=== PATIENT | male | born 1990 | race Caucasian/White ===

== ENCOUNTER 2019-11-13 20:02 | Emergency (ER) | payer OTHER, SELFPAY ==
[2019-11-13 20:04] VITALS: BP 144/86; PULSE 96; RESP 15; TEMP 36.4; O2SAT 98; BMI 30.2
--- NOTE | 2019-11-13 20:11 | ED.VIS.GEN ---
History of Present Illness Chief Complaint: Lower Extremity Injury Informant: Patient Onset: Today Narrative: Inversion injury right ankle 5 PM at [email or web address]. Jumping off a rock climbing wall into foam pit, when he felt pain. Pain shoots up his leg to his buttocks. No back pain. No loss of bowel or bladder control. Aleve taken within the last hour. No history of gastric ulcers or kidney injury. Patient drove himself here. No past medical history. States has had nonsurgical fractures when he was younger. Prior similar symptoms: Yes Past Medical History - Allergies and Home Meds Allergies/Adverse Reactions: Allergies No Known Allergies Allergy (Verified 11/13/19 20:02) Primary Care Physician: Samy Nguyen MD [Primary Care Provider] - Past Medical History: None Smoking Status: Never smoker Review of Systems General: Denies: Chills, Fever, Sweats Eyes: Denies: Visual changes - bilaterally, Diplopia ENT: Denies: Rhinorrhea, Sore throat Cardiovascular: Denies: Chest pain, Palpitations Respiratory: Denies: Dyspnea, Cough, Dyspnea on exertion Gastrointestinal: Denies: Abdominal pain, Nausea, Vomiting, Diarrhea, Melena, Hematochezia Genitourinary: Denies: Dysuria, Hematuria, Frequency Musculoskeletal: Reports: Arthralgias. Denies: Back pain, Extremity Pain Skin: Denies: Rash, Wounds Neurological: Denies: Headache, Weakness, Numbness Physical Exam Vital Signs/Narrative: Vital Signs Temp Pulse Resp BP Pulse Ox 11/13/19 20:04 97.6 F L 96 15 144/86 H 98 Inital Vital Signs reviewed: Yes General: Well nourished, Well developed, No Acute Distress Head: Normocephalic, Atraumatic Eyes: Perrl, EOMI ENT: Moist mucous membranes, No rhinorrhea Neck: Supple, Nontender Cardiovascular: Regular rate, Regular rhythm, No murmurs Respiratory: No distress, CTA bilaterally, Chest nontender Abdomen: Soft, Nontender, Nondistended, Normal bowel sounds Back: Nontender, Normal Inspection, - - Straight leg test negative bilaterally. Extremities: Nontender, No edema, - - Right lower extremity: No tenderness of hip or knee. There is slight tenderness lateral malleolus with tenderness and swelling of the ATFL. No foot tenderness. Neurovascular intact distally. Skin intact. Skin: Normal color, No rash Neurological: Alert, Oriented x3, Cranial nerves II-XII grossly intact, Normal Strength, Normal Sensation Psychological: Normal affect, Normal Mood Diagnostic/Tx/Re-eval - Medical Decision Making Clinical Impression(s) from Imaging Studies Ankle X-Ray 11/13/19 20:24 IMPRESSION: Normal x-ray examination of the ankle. Electronically Signed: Sky North MD at 20:53 EST , Service support , 3 view x-ray of ankle reviewed by myself and read by radiologist with no acute fractures. Provide Aircast. Poor radicular symptoms likely from his injury, there is no deformities, no back pain. He states previously did not like opiates, discussed continuing his Aleve with 2 tabs [id number] every 12 hours. Rice therapy. He declined any crutches at this time. He will follow-up as an outpatient. All questions were answered. ED Disposition - Plan for ED Patient: Disposition: Home or Assisted Living Diagnosis: Right ankle sprain Instructions: Sprain, Ankle, with X-Ray Referrals: Samy Nguyen MD [Primary Care Provider] - 5-7 Days Additional Instructions: Right ankle x-ray: No fracture noted. Continue [id number] Aleve 2 tabs every 12 hours for pain control.
--- NOTE | 2019-11-13 20:24 | RAD_ITS ---
STUDY: X-RAY - RIGHT ANKLE REASON FOR EXAM: Male, 29 years old. PAIN TO LATERAL ANKLE RADIATING UP LEG S/P INJURY AT [employer] TECHNIQUE: 3 view(s) of the ankle. COMPARISON: None. FINDINGS: Normal visualized distal tibia and fibula. Normal medial and lateral malleoli. Normal tibiotalar articulation and ankle mortise. Normal visualized talus and calcaneus. The visualized subtalar, talonavicular, calcaneocuboid and tarsal articulations are normal. There is no demonstrated fracture. The soft tissue structures are unremarkable. RAD/Ankle min 3 Views IMPRESSION: Normal x-ray examination of the ankle. Electronically Signed: Sky North MD at 20:53 EST , Service support ,
== END 2019-11-13 21:26 | disposition home or self-care (01) ==
PROVIDERS: Emergency Provider Emergency Medicine; PCP Family Medicine
DX: S93.401A Sprain of unspecified ligament of right ankle, initial encounter (principal); X58.XXXA Exposure to other specified factors, initial encounter; Y93.44 Activity, trampolining; Y92.838 Other recreation area as the place of occurrence of the external cause
CPT/HCPCS: 73610; 99283

== ENCOUNTER → 2020-05-30 13:27 | Outpatient (CLI) | payer OTHER, SELFPAY ==
--- NOTE | 2020-05-30 13:30 | PET_ITS ---
EXAMINATION: FDG PET-CT INDICATIONS: A 29-year-old male with reported history of lymphoma presenting for initial staging examination. COMPARISON EXAMINATION: None available INDEX LESION SIZE LUGANO SCORE SUV INTERPRETATION Bilateral-anterior neck-supraclavicular regions 14.5 x 12.2-mm (largest) (frame 218) 5 4.8 (max) Fulfills quantitative criteria for viable neoplasm Mediastinal structures 17.3 x 24.4-mm (largest) (frame 190) 5 6.2 (max) Fulfills quantitative criteria for viable neoplasm Abdominal retroperitoneum 23.9 x 42.6-mm (largest) (frame 119) 5 7.2 (max) Fulfills quantitative criteria for viable neoplasm TECHNIQUE: Following the intravenous administration of 13.88 mCi of F-18 deoxyglucose via the left antecubital fossa, multiplanar image acquisitions of the neck, chest, abdomen and pelvis to level of mid thigh, obtained at one hour post radiopharmaceutical administration contemporaneously interpreted with the current CT of the neck, chest, abdomen and pelvis, to level of mid thigh, dated 05/30/2020 via coregistration reveals: BLOOD GLUCOSE LEVEL:?? 81 mg/dl?HEIGHT:?67 inches?WEIGHT: 180 lbs. FINDINGS: 1. Multifocal increased glucose metabolism is defined in the bilateral supraclavicular regions-anterior neck involving level IV. The calculated maximal standard uptake value is 4.8. The Lug[place] Deauville score is 5. The maximal axial diameter of the largest individual metabolic, morphologic abnormality on review of CT of the neck-chest dated 05/30/2020 is 14.5-mm (transverse) x 12.2-mm (AP). 2. Enhanced fluorine labeled glucose uptake is multifocally apparent in the pre-subcarinal anterior-posterior mediastinum corresponding to soft tissue nodularity on review of CT of the chest dated 05/30/2020. The calculated maximal standard uptake value is 6.2. The [place] Deauville is 5. The maximal axial diameter of the largest individual hypermetabolic soft tissue density on review of CT of the chest dated 05/30/2020 is 17.3-mm (transverse) x 24.4-mm (AP). 3. Multifocal increased FDG distribution is manifest in the left upper-lower abdominal retroperitoneum corresponding to soft tissue nodularity on review of CT of the abdomen and pelvis dated 05/30/2020. The calculated maximal standard uptake value is 7.2. The Lug[place] Deauville score is 5. The maximal axial diameter of the largest individual metabolic, morphologic abnormality on review of CT of the abdomen dated 05/30/2020 is 23.9-mm (transverse) x 42.6-mm (AP). 4. Normal physiologic distribution of the radiopharmaceutical is apparent in the hepatic (2.4) and splenic parenchyma, both renal units, bladder and visualized intestinal tract. The visualized portion of the cerebral cortex demonstrate symmetric and preserved glucose metabolism. Diffuse radiopharmaceutical concentration is noted in all four quadrants of the abdomen and pelvis. Pertinent CT findings are as follows: CHEST: Bilateral axillary soft tissue densities with fatty hilus are ametabolic. There are no parenchymal densities-nodules defined in the right and left hemithorax with discernible quantitatively significant increased FDG concentration. ABDOMEN AND PELVIS: Bilateral subcentimeter inguinal soft tissue demonstrates no evidence of facilitated FDG uptake. Calcified phlebolith formation is visualized in the bilateral lower hemipelvis. SKELETAL: Degenerative changes are noted in the cervical, thoracic and lumbar spine. PET/PET/CT Tumor Base -Thigh Init IMPRESSION: 1. ABNORMAL EXAMINATION INDICATIVE OF MALIGNANT VIABLE NEOPLASM. 2. Increased glucose concentration observed in the bilateral anterior neck-supraclavicular regions, mediastinal structures and abdominal retroperitoneum fulfill quantitative criteria for viable neoplasm. (Aleksandra et al, Journal of Clinical Oncology 32:3059, 2014). Electronic Signature uJdd Brantley D.O. Accurate Quantification of SUVs for this report are calculated using the exclusive [employer] Technology. Electronically Signed: Judd Brantley DO at 22:42 EDT Tel , Service support ,
== END ==
PROVIDERS: PCP Family Medicine; Referring Provider Internal Medicine Hematology & Oncology; Visit Provider Internal Medicine Hematology & Oncology
DX: C81.18 Nodular sclerosis Hodgkin lymphoma, lymph nodes of multiple sites (principal)
CPT/HCPCS: 78815; A9552

== ENCOUNTER 2020-06-01 13:19 | Day surgery (SDC) | payer OTHER, SELFPAY ==
--- NOTE | 2020-05-30 15:33 | PCM.HP.BLA ---
History and Physical Date of Admission: 06/01/20 Chief Complaint: need for IV access for chemotherapy for lymphoma History of Present Illness: 29 y/o WM with newly diagnosed lymphoma. Findings on CT scan of intrathoracic enlarged lymph nodes for which biopsy revealed Hodgkin's lymphoma He has been evaluated by the oncologist and recommendations for VAD placement. Patient has not had previous central line venous catheters. Denies clavicular or rib fractures in the past. Denies history of DVTs in past. Past Medical History: Hodgkin's lymphoma anemia Past Surgical History: appendectomy Medications: iron supplementation Allergies: Has no known drug allergies Social history: TOB use denies Review of Systems: CONSTITUTIONAL: ?No fevers, chills, nightsweats, unintended weight loss HEENT: ?Denies frequent or severe heaches, nasal congestion/sinus symptoms, problematic allergy problems. EYES: ?No diplopia or blurry vision. CARDIOVASCULAR: ?No chest pain, dyspnea, palpitations, orthopnea, PND, ankle edema. PULM: ?No dyspnea, unexplained cough. GI: ?No dysphagia/odynophagia, problematic reflux, constipation, diarrhea, changes in stool habits, hematochezia, melena. : ?No new urinary complaints, including dysuria, gross hematuria or pyuria. NEURO: ?No new balance problems, peripheral weakness/paresthesias or numbness of concern. MUSC-SKEL: ?No new joint pain, swelling, or erythema. PSY: ?No concerns regarding depression, anxiety or panic. INTEGUMENTARY: ?No new skin changes (rash, new or changing mole, new growth) Physical examination: Vital signs BP 123/72 Pulse 57 Temp (Src) 97.2 (Temporal) Wt 180 lb 8 oz (81.9kg) HEENT: Head is normocephalic, atraumatic. Sclerae white, conjunctivae pink. PEERL. EOMs are intact. Oropharynx is benign. LYMPHATICS: There is palpable adenopathy in the neck, supraclavicular region,??no axillary adenopathy or inguinal adenopathy LUNGS: Lungs are clear to percussion and auscultation. HEART: Heart is normal without murmurs, gallops, or rubs. ABDOMEN: Soft and nontender without hepatosplenomegaly. No masses can be palpated. EXTREMITIES: Are without edema. NEUROLOGIC: Exam is physiologic PSYCH: appropriate and calm Impression: lymphoma Discussion/Plan: I have discussed the above with the patient. I have offered the patient the procedure of placement of portacath. I have explained the procedure to the patient. I have counseled the patient as to the risks of the procedure, including but not limited to: infection, bleeding, injury to any blood vessels/nerves, scar tissue, injury to the lungs such as hemothorax and/or pneumothorax, thrombosis of blood vessel, non functioning of port, line infection/sepsis, inability to place catheter, wound infections, etc. the patient understands. The patient was offered a surgery/procedure. The provider and patient have discussed in detail the risk of exposure to and/or potential harm posed by the COVID-19 virus with having a surgery/procedure at this time versus the risk of delaying the surgery/procedure. It is not possible to know either the risk of delaying the surgery or procedure or chance of getting an infection with perfect accuracy, but a joint decision was made between the patient and the provider to proceed at this time with the scheduled surgery/procedure. He wishes to proceed. I have answered all questions to the patient?s satisfaction and the patient has no further questions.
[2020-06-01 13:38] VITALS: BP 125/78; PULSE 73; RESP 16; TEMP 36.8; O2SAT 98; BMI 26.9
[2020-06-01] MEDS: Lactated Ringers 1,000 ML 75 ML IV (13:38)
[2020-06-01] MEDS: Cefazolin 2 GM in 0.9% Normal Saline 100 ML IV (15:09)
--- NOTE | 2020-06-01 15:59 | PCM.OPRPT ---
Report of Operation Date of Procedure: 06/01/20 Pre-Operative Diagnosis: Hodgkin's lymphoma, need for IV access for chemotherapy Post-Operative Diagnosis: same as above Surgery/Procedure Performed:: placement of permanent indwelling tunneled catheter in right subclavian vein with subcutaneous port Description of Surgical Findings:: normal right subclavian anatomy to SVC Type of Anesthesia:: Local MAC Anesthesiologist: Luis Carlos Garcia Specimen's removed: none Estimated Blood Loss (mL): < 5 ml Fluids Replaced: 800 ml RL Description of Procedure: After informed consent was given, the patient was brought to the Operating Room. Appropriate time out protocol was followed. The patient was then placed in the supine position. The patient was then given IV conscious sedation for anesthesia. The patient?s upper chest and neck were then prepped with a surgical skin preparation and sterile surgical drapes were placed. After proper landmarks were ascertained, the skin at the upper right chest area was then infiltrated with 1% xylocaine with epinephrine. A needle trocar was then inserted into the right subclavian vein and there was good aspiration of venous blood. A wire was then threaded into the needle trocar and this was visualized under fluoroscopy to ensure that the wire was in the right subclavian vein. Once this was done, then the needle trocar was removed. A small skin naveen was made with an 11 blade knife at the wire entrance site. The dilator with the introducer sheath attached was then placed over the wire into the right subclavian vein via the Seldinger technique and this was visualized under fluoroscopy. The dilator and sheath were in proper position as visualized by fluoroscopy in real time. The wire and dilator were then removed. The catheter was then threaded into the introducer sheath and was positioned with its tip at the junction of the superior vena cava and the right atrium as visualized under fluoroscopy in real time. I personally reviewed all of the above fluoroscopic images and noted that the positions of the wire and catheter were correct so that the next step could be conducted. The catheter was flushed with a heparin saline mixture prior to placement. A subcutaneous pocket was then created caudad to the catheter insertion site. A transverse skin incision was made after the skin and subcutaneous tissues were infiltrated with local anesthetic. Blunt dissection was then used to create a space large enough for placement of the subcutaneous port. Hemostasis was carefully controlled with electrocautery. The port was sutured to the subcutaneous fascia using vicryl suture at three sites. The catheter was then tunneled into the subcutaneous pocket. The excess catheter was transected. The catheter was then attached to the subcutaneous port using pelletizer tender?s guidelines. The port was then placed in the subcutaneous pocket and the sutures were ligated. The subdermal incisional sites were reapproximated with interrupted vicryl suture. The skin was reapproximated with monocryl suture in a subcuticular fashion. Cavilon and steristrips were used for reinforcement of the skin closure and a sterile opsite dressing was applied. Sponge, needle, and instrument count were verified and correct at the time of skin closure. The patient was brought to the Recovery Room in stable condition [id number] 2021-07-08 - Complications none noted - Admit VTE Documentation VTE Present on Admission: Yes VTE Mechan Device Prophylaxis: SCD's
[2020-06-01 16:10] VITALS: BP 118/62; BP 125/78; PULSE 93; RESP 16; TEMP 36.3; O2SAT 99
[2020-06-01 16:15] VITALS: BP 112/64; BP 125/78; PULSE 83; RESP 16; O2SAT 100
--- NOTE | 2020-06-01 16:16 | RAD_ITS ---
STUDY: X-RAY CHEST REASON FOR EXAM: Male, 29 years old. Postop, port placement. TECHNIQUE: Single AP portable view of the chest. COMPARISON: Chest, 04/18/2011. PET/CT scan, 05/30/2020. FINDINGS: Right subclavian Port-A-Cath with its tip in the distal superior vena cava. There is no pneumothorax. The lungs are well-expanded. There is soft tissue density in the region of the left upper hilar left upper lobe which correlates with the mediastinal mass seen in this area on PET CT scan. Lungs appear otherwise clear. There is no demonstrated pleural abnormality. Normal size heart. Normal mediastinum and mary. Normal visualized pulmonary arteries. Normal visualized aortic arch and descending thoracic aorta. Normal visualized thoracic spine. Normal visualized ribs, clavicles, and shoulders. There is no demonstrated abnormality of the visualized soft tissue structures of the upper abdomen. RAD/CXR for Line Placement IMPRESSION: 1. Right subclavian Port-A-Cath as described. There is no pneumothorax. 2. Left mediastinal/hilar mass. Electronically Signed: Bro Salcido DO at 16:29 EDT Tel [phone], Service support ,
[2020-06-01 16:20] VITALS: BP 112/67; BP 125/78; PULSE 83; RESP 16; O2SAT 100
[2020-06-01 16:25] VITALS: BP 110/63; BP 125/78; PULSE 82; RESP 16; TEMP 36.4
--- NOTE | 2020-06-01 16:25 | PCM.DC.POR ---
Discharge Diet: No Restrictions Discharge Activity: Return to Normal Activity, May not drive while taking narcotic pain medications. Call your doctor if your incision/area has: Continuous Slow Oozing, Foul Smelling Discharge Call your doctor if you observe: Fever of 101 or Higher Additional Instructions: Recommended pain control regimen - May take 600 mg ibuprofen (Motrin) and then in 3-4 hours, may take 650 mg acetaminophen (Tylenol), then in 3-4 hours may take 600 mg ibuprofen, then in 3-4 hours may take 650 mg acetaminophen and so on for 2-3 days May take narcotic pain medication for pain that is not controlled by above and at night for comfort through the night Leave dressings in place May get dressings wet in shower - do not scrub in the area and pat dry Do not soak - no tub baths/swimming If dressing appears to be soiled/open at one end/no longer sealed - may remove dressing but leave site uncovered (do not replace with any type of dressing) - leave steristrips in place - may get wet but do not scrub in the area and pat dry May apply ice to area for comfort as tolerated Allergies/Adverse Reactions: Allergies No Known Allergies Allergy (Verified 06/01/20 13:27) Medications to take at Discharge Hydrocodone Bitart/Apap 5-325 [[place] 5MG-325MG] 1 tablet PO Q8H PRN PRN 5 Days #15 tablet 06/01/20 The following prescriptions were given: Hydrocodone Bitart/Apap 5-325 [[place] 5MG-325MG] 1 tablet PO Q8H PRN PRN 5 Days #15 tablet PRN Reason: Pain Transmission Status: Sent to [facility] Primary Care Physician: Samy Nguyen MD [Primary Care Provider] - Test Results: Test results from this visit will be discussed in further detail at your follow-up appointment, if applicable.
[2020-06-01 17:00] VITALS: BP 110/71; BP 125/78; PULSE 78; RESP 16; TEMP 36.5; O2SAT 98
== END 2020-06-01 17:07 | disposition home or self-care (01) ==
LOC: SDC 13:19 → AC 13:20
PROVIDERS: PCP Family Medicine; Referring Provider Surgery; Visit Provider Surgery
PROC: (CPT 36561; principal; 2020-06-01 14:45)
DX: Z45.2 Encounter for adjustment and management of vascular access device (principal); C81.92 Hodgkin lymphoma, unspecified, intrathoracic lymph nodes; K21.9 Gastro-esophageal reflux disease without esophagitis
CPT/HCPCS: 00532; 36561; 71045; 77001; J7120; C1788

== ENCOUNTER → 2020-08-01 15:53 | Outpatient (CLI) | payer OTHER, SELFPAY ==
--- NOTE | 2020-08-01 16:30 | PET_ITS ---
EXAMINATION: FDG PET-CT INDICATIONS: A 29-year-old male with history of lymphoma presenting for restaging examination. COMPARISON EXAMINATION: None available INDEX LESION SIZE SUV INTERPRETATION Spleen-splenomegaly 13.0-cm 4.1 (uncorrected), 2.9 (corrected) > liver ref Fulfills quantitative criteria for viable neoplasm TECHNIQUE: Following the intravenous administration of 11.5 mCi of F-18 deoxyglucose via the left antecubital fossa, multiplanar image acquisitions of the neck, chest, abdomen and pelvis to level of mid thigh, obtained at one hour post radiopharmaceutical administration contemporaneously interpreted with the current CT of the neck, chest, abdomen and pelvis, to level of mid thigh, dated 08/01/2020 via coregistration reveals: BLOOD GLUCOSE LEVEL:?? 88 mg/dl? FINDINGS: 1. The spleen is prominent in size demonstrating a maximal vertical dimension of 13.0-cm (normal<12.5-cm). The calculated uncorrected standard uptake value is 4.1, (uncorrected) greater than liver reference, 2.9 (corrected). 2. Normal physiologic distribution of the radiopharmaceutical is apparent in the hepatic (2.8) parenchyma, both renal units, bladder and visualized intestinal tract. The visualized portion of the cerebral cortex demonstrate symmetric and preserved glucose metabolism. Diffuse radiopharmaceutical concentration is noted in all four quadrants of the abdomen and pelvis. There is homogenous enhanced glucose concentration evidenced in the visualized appendicular and axial skeletal structures. Pertinent CT findings are as follows: CHEST: Brian-cath placement is noted. Bilateral axillary soft tissue densities with fatty hilus are non-glucose avid. There are no parenchymal densities-nodules defined in the right and left hemithorax with discernible increased FDG concentration. Scattered mediastinal soft tissue is ametabolic. ABDOMEN AND PELVIS: There is borderline fatty metamorphosis-steatosis defined in the hepatic parenchyma. Right-left subcentimeter inguinal soft tissue densities demonstrate no evidence of quantitatively significant increased FDG uptake. Calcified phlebolith formation is observed in the bilateral lower hemipelvis. SKELETAL: Degenerative changes are noted in the cervical, thoracic and lumbar spine. PET/PET/CT Tumor Base -Thigh Subs IMPRESSION: 1. ABNORMAL EXAMINATION INDICATIVE OF MALIGNANT VIABLE NEOPLASM. 2. Increased glucose concentration noted in the prominent size spleen fulfills quantitative criteria for viable neoplasia. (Aleksandra et al, Journal of Clinical Oncology 32:3059, 2014 Stephany vargas al., Journal of Nuclear Medicine 44:1072, 2004). 3. Homogeneous increased radiopharmaceutical concentration noted in the visualized appendicular and axial skeletal structures in the absence of suspected diffuse skeletal neoplasia, is commensurate with the hematopoietic response to chemotherapeutic intervention. (Addison vargas al, Journal of Clinical Oncology 16:173, 1998). Electronic Signature Judd Brantley D.O. Accurate Quantification of SUVs for this report are calculated using the exclusive [employer]. Electronically Signed: Judd Brantley DO at 22:14 EST Tel , Service support ,
== END ==
PROVIDERS: PCP Family Medicine; Referring Provider Internal Medicine Hematology & Oncology; Visit Provider Internal Medicine Hematology & Oncology
DX: C81.98 Hodgkin lymphoma, unspecified, lymph nodes of multiple sites (principal)
CPT/HCPCS: 78815; A9552